=== PATIENT | male | born 1950 | race Caucasian/White ===

== ENCOUNTER → 2017-01-20 | Outpatient (CLI) | payer OTHER ==
--- NOTE | 2017-01-20 23:37 | REP ---
Clinical: Lung screening. Smoking history. Comparison: None Technique: Axial low-dose noncontrast images from the thoracic inlet to the upper abdomen using lung screening technique. Findings: The lung addison are well-aerated demonstrating a mild chronic bronchiectasis and very minimal scattered emphysematous changes. Moderate and somewhat nodular presumed biapical scarring is appreciated (left greater than right). A 4.7 mm density is identified and inseparable from the left major fissure (image [id number]) which in all likelihood represents small scarring. No consolidation or mass lesion is appreciated. No pleural effusion/reaction or pneumothorax. Tracheobronchial tree is patent. Mediastinum demonstrates moderate atherosclerotic changes of the thoracic aorta and coronary arteries without cardiomegaly. Impression: Lung-RADS category II. Somewhat nodular presumed biapical scarring and 4.7 mm density inseparable from the left major fissure likely represent chronic change. Consider initial 6-month follow-up low-dose screening evaluation. Signed by Mark Gleason MD 01/20/2017 11:28 P
== END ==
LOC: M RAD 16:06
PROVIDERS: ATTEND Family Medicine
DX: F17.200 Nicotine dependence, unspecified, uncomplicated (principal); R91.8 Other nonspecific abnormal finding of lung field

== ENCOUNTER → 2017-10-13 | Outpatient (CLI) | payer MEDICARE, OTHER | LOC: M RAD 11:00 | DX: R91.8 Other nonspecific abnormal finding of lung field (principal); Z72.0 Tobacco use | CPT/HCPCS: 71250 ==

== ENCOUNTER → 2018-12-22 | Outpatient (CLI) | payer MEDICARE, OTHER ==
--- NOTE | 2018-12-23 16:27 | REP ---
REASON FOR EXAM: Single pulmonary nodule. PRIORS: None. Prior CT of the chest 11/15/2018, 10/13/2017 and 01/20/2017 were all reviewed. Those examination showed stable biapical pleural parenchymal scarring, no evidence of mediastinal or hilar adenopathy although difficulty to evaluate since the latest prior was performed without intravenous contrast. Low density hepatic lesions were also seen and unchanged from prior exams as well. After the intravenous administration of 8.6 millicuries of FDG obtained triplane whole body PET CT was performed from the skull base to the mid thigh. There is no abnormal hypermetabolic activity seen in the neck, chest, abdomen or pelvis. IMPRESSION: Negative CT PET. Stable biapical pleural parenchymal scarring seen on multiple CT scans. Electronically Signed by Mario Lorenzo DO 12/23/2018 06:58 P
== END ==
LOC: M PLARAD 09:50
PROVIDERS: ATTEND Internal Medicine Pulmonary Disease
DX: R91.1 Solitary pulmonary nodule (principal)
CPT/HCPCS: 78815; A9552

== ENCOUNTER 2019-05-19 11:40 | Day surgery (SDC) | payer MEDICARE, OTHER ==
[~2019-05-19] VITALS: Ht 172.7 cm; Wt 54.0 kg
[2019-05-19] MEDS: NS 1,000 ML IV ONE (07:00)
[~2019-05-19 11:40] MED LIST: AMLO25TA PO; ASPI81CH33 PO; ATOR1TAB19 PO; CHOL100029 PO; FLOM0.4C39 PO; LOSA25TA14 PO
[2019-05-19] MEDS ORDERED: LIDOCAINE 2% INJ 100 MG/5 ML SDV (FOR ANES.) As Ordered ONE (12:18)
[2019-05-19] MEDS ORDERED: PROPOFOL 200 MG/20 ML VIAL As Ordered ONE (12:18)
--- NOTE | 2019-05-19 12:56 | ROOR ---
Patient Name: French Frank Procedure Date: 05/19/2019 12:27 PM Date of : 1950 Age: 69 Room: [facility] Gender: Male Note Status: Finalized Procedure: Colonoscopy Indications: High risk colon cancer surveillance: Personal history of colonic polyps Providers: Richard Salmeron Jr, MD Referring MD: Tere Jeong DO Requesting Provider: Medicines: Propofol per Anesthesia Complications: No immediate complications. Procedure: Pre-Anesthesia Assessment: - Prior to the procedure, a History and Physical was performed, and patient medications and allergies were reviewed. The patient is competent. The risks and benefits of the procedure and the sedation options and risks were discussed with the patient. All questions were answered and informed consent was obtained. Patient identification and proposed procedure were verified by the physician and the nurse in the pre-procedure area and in the procedure room. Mental Status Examination: alert and oriented. Airway Examination: normal oropharyngeal airway and neck mobility. Respiratory Examination: clear to auscultation. CV Examination: normal. ASA Grade Assessment: II - A patient with mild systemic disease. After reviewing the risks and benefits, the patient was deemed in satisfactory condition to undergo the procedure. The anesthesia plan was to use moderate sedation / analgesia (conscious sedation). Immediately prior to administration of medications, the patient was re-assessed for adequacy to receive sedatives. The heart rate, respiratory rate, oxygen saturations, blood pressure, adequacy of pulmonary ventilation, and response to care were monitored throughout the procedure. The physical status of the patient was re-assessed after the procedure. The Colonoscope was introduced through the anus and advanced to the cecum, identified by appendiceal orifice and ileocecal valve. The colonoscopy was performed without difficulty. The patient tolerated the procedure well. The quality of the bowel preparation was fair. Findings: The rectum, recto-sigmoid colon, sigmoid colon, descending colon, transverse colon, ascending colon, cecum, appendiceal orifice and ileocecal valve appeared normal. A small polyp was found in the transverse colon. The polyp was removed with a cold snare. Resection and retrieval were complete. Impression: - Preparation of the colon was fair. - The rectum, recto-sigmoid colon, sigmoid colon, descending colon, transverse colon, ascending colon, cecum, appendiceal orifice and ileocecal valve are normal. - One small polyp in the transverse colon, removed with a cold snare. Resected and retrieved. Recommendation: - Discharge patient to home (ambulatory). - Repeat colonoscopy in 5 years for surveillance. Richard Salmeron MD Richard Salmeron Jr, MD 05/19/2019 12:56:15 PM Electronically signed by Richard Salmeron Jr, MD Number of Addenda: 0 Note Initiated On: 05/19/2019 12:27 PM Estimated Blood Loss: Estimated blood loss: none.
[2019-05-19 13:35] VITALS: BP 178/85
== END 2019-05-19 13:45 | disposition home or self-care (01) ==
LOC: M OPP 11:40
PROVIDERS: ATTEND Surgery
DX: Z12.11 Encounter for screening for malignant neoplasm of colon (principal); Z86.010 Personal history of colon polyps; D12.3 Benign neoplasm of transverse colon; I25.2 Old myocardial infarction; N40.0 Benign prostatic hyperplasia without lower urinary tract symptoms; Z79.899 Other long term (current) drug therapy; Z88.0 Allergy status to penicillin